=== PATIENT | male | born 1940 | race Caucasian/White ===

== ENCOUNTER → 2021-05-28 | Outpatient (CLI) | payer MEDICARE, BC ==
[~2021-05-28] MED LIST: ALBUTEROL0.63 MG/3 INH; CARDIZEM LA240 MG PO; FERROUS SULFAT325 M2 PO; FISH OIL 1,0001 EAC5 PO; FLOMAX 0.4 MG0.4 MG PO; HYDROCODON-ACE1 EAC6 PO; IBU800 MG PO; LEVOTHYROXINE50 MC1 PO; LIPITOR20 MG PO; LOW DOSE ASPIRI81 MG PO; PROTONIX40 MG PO; PROVENTIL HFA6.7 GM INH; SPIRIVA18 MCG INH; SYMBICORT 16010.2 GM INH
[2021-05-28 12:27] LABS: HEMOGLOBIN 11.1 gm/dl (14.0-17.5); RED BLOOD COUNT 3.38 M/UL (4.20-5.50); WHITE BLOOD COUNT 7.9 K/UL (4.5-11.0)
[2021-05-28 12:45] LABS: BUN/CREATININE RATIO 31 (0-10)
== END ==
LOC: OPSV2 11:30
PROVIDERS: Orthopaedic Surgery
DX: Z01.818 Encounter for other preprocedural examination (principal); R91.8 Other nonspecific abnormal finding of lung field
CPT/HCPCS: 71046; 80048; 85027; 93005

== ENCOUNTER 2021-06-01 05:19 | Day surgery (SDC) | payer MEDICARE, BC ==
[~2021-06-01] VITALS: Ht 188 cm; Wt 83.9 kg
[~2021-06-01 05:19] MED LIST changes: -ALBUTEROL0.63 MG/3 INH; -FERROUS SULFAT325 M2 PO
[2021-06-01 13:17] LABS: HEMOGLOBIN 10.8 gm/dl (14.0-17.5); RED BLOOD COUNT 3.31 M/UL (4.20-5.50)
[2021-06-01 13:40] LABS: BUN/CREATININE RATIO 21 (0-10)
[2021-06-01] MEDS ORDERED: ALBUTEROL0.63 MG/3 INH (13:47)
[2021-06-02 04:39] LABS: HEMOGLOBIN 10.1 gm/dl (14.0-17.5); RED BLOOD COUNT 3.09 M/UL (4.20-5.50); WHITE BLOOD COUNT 8.5 K/UL (4.5-11.0)
[2021-06-02 05:14] LABS: BUN/CREATININE RATIO 23 (0-10)
[2021-06-02] MEDS ORDERED: FERROUS SULFAT325 M2 PO (11:51)
== END 2021-06-02 14:20 | disposition home or self-care (01) ==
LOC: MED SURG 4 05:19 → OR 05:19 → MED SURG 4 13:15 → OR 06-02 14:20
PROVIDERS: Internal Medicine
DX: S52.572A Other intraarticular fracture of lower end of left radius, initial encounter for closed fracture (principal); D50.9 Iron deficiency anemia, unspecified; I10 Essential (primary) hypertension; J43.9 Emphysema, unspecified; M19.041 Primary osteoarthritis, right hand; E78.5 Hyperlipidemia, unspecified; K21.9 Gastro-esophageal reflux disease without esophagitis; E07.9 Disorder of thyroid, unspecified; Z99.81 Dependence on supplemental oxygen; Z99.3 Dependence on wheelchair; Z87.891 Personal history of nicotine dependence; Z79.899 Other long term (current) drug therapy; W01.0XXA Fall on same level from slipping, tripping and stumbling without subsequent striking against object, initial encounter
CPT/HCPCS: 36415; 71045; 73110; 76000; 80048; 83540; 83550; 83735; 83880; 84100; 85025; 86140; 86850; 86900; 86901; 93005; 94640; 94664; 94760; 97161; 97165; C1713; J0690; J1100; J2001; J2250; J2270; J2405; J2704; J2795; J3010; J7030; J7120

== ENCOUNTER → 2021-10-12 | Day surgery (SDC) | payer MEDICARE, BC ==
[~2021-10-12] VITALS: Ht 188 cm; Wt 83.9 kg
[~2021-10-12] MED LIST changes: +ALBUTEROL0.63 MG/3 INH; +DOCUSATE SODIU100 MG PO; +FERROUS SULFAT325 M2 PO; +ROXICODONE TAB 55 MG PO
[2021-10-12 06:30] LABS: HEMOGLOBIN 12.3 gm/dl (14.0-17.5); RED BLOOD COUNT 3.78 M/UL (4.20-5.50); WHITE BLOOD COUNT 5.8 K/UL (4.5-11.0)
[2021-10-12 06:49] LABS: BUN/CREATININE RATIO 29 (0-10)
== END | disposition home or self-care (01) ==
LOC: OR 05:14
PROVIDERS: Orthopaedic Surgery
DX: Z47.2 Encounter for removal of internal fixation device (principal); S52.131K Displaced fracture of neck of right radius, subsequent encounter for closed fracture with nonunion; I10 Essential (primary) hypertension; K21.9 Gastro-esophageal reflux disease without esophagitis; E78.5 Hyperlipidemia, unspecified; J44.9 Chronic obstructive pulmonary disease, unspecified; Z87.81 Personal history of (healed) traumatic fracture; Z87.891 Personal history of nicotine dependence; Z79.82 Long term (current) use of aspirin; Z79.899 Other long term (current) drug therapy; Z20.822 Contact with and (suspected) exposure to COVID-19
CPT/HCPCS: 36415; 71045; 73100; 76000; 80048; 85025; 93005; J0690; J1100; J2001; J2370; J2405; J2704; J3010; J7120